=== PATIENT | male | born 1995 | race Caucasian/White ===

== ENCOUNTER 2018-09-09 20:03 | Emergency (ER) | payer BC ==
--- NOTE | 2018-09-09 21:21 | EDPHY ---
H & P Time Seen by Provider: 09/09/18 20:20 HPI/ROS: This patient describes onset of chest pain right lower chest while at the urgent care clinic being seen for a chronic cough he has had for 6-8 weeks. He explains that this was initially productive for the 1st few days associated with a sore throat in addition. The sore throat resolved and the cough has been dry with exception of mild clear to yellow sputum in the mornings in the past few weeks. He reports that he does not feel symptoms are improving and today he developed the additional symptom of the right-sided chest pain which she describes as a slight ache 4/10 intensity slightly worse with a deep breath. He had a chest x-ray performed at the urgent care reports was normal exception of airway disease. He was sent here out of concern of potential PE. His risk factors for PE include recent travel to [place]-returned 2 weeks ago, and hormone therapy for gender reassignment. He is also smoker. ROS: Constitutional: No fevers. No fatigue. HEENT: No current complaints pulmonary: Occasional wheeze and shortness of breath. He feels this improved with the albuterol neb he received at the urgent care shortly prior to arrival Cardiovascular: No heart palpitations lightheadedness. No leg swelling or calf pain. GI: No abdominal pain. Integumentary: No skin rash 10 point review of symptoms is performed and otherwise negative with exception of pertinent positives and negatives listed in HPI and ROS Past Medical/Surgical History: Gender reassignment receiving hormones as noted in medication list. Smoking Status: Current every day smoker Physical Exam: General Appearance: Alert, no distress. Eyes: Pupils equal and round no pallor or injection. ENT, Mouth: Mucous membranes moist. Respiratory: There are no retractions, lungs are clear to auscultation. Cardiovascular: Regular rate and rhythm. No murmur gallop rub Gastrointestinal: Abdomen is soft and nontender, no masses, bowel sounds normal. Neurological: GCS 15 Skin: Warm and dry, no rashes. Musculoskeletal: Neck is supple nontender. Extremities are symmetrical, full range of motion. Psychiatric: Mood and affect normal DIFFERENTIAL DIAGNOSIS: After history and physical exam differential diagnosis was considered for musculoskeletal pain, bronchitic pain, PE, pneumonia ruled out by chest x-ray earlier at the urgent care. Constitutional: Initial Vital Signs Temperature (C) 36.8 C 09/09/18 20:19 Heart Rate 93 10/18/18 20:19 Respiratory Rate 16 09/09/18 20:19 Blood Pressure 117/68 09/09/18 20:19 O2 Sat (%) 100 09/09/18 20:19 O2 Delivery Mode Room Air Allergies/Adverse Reactions: No Known Allergies Allergy (Unverified 09/09/18 20:18) Home Medications: Medication Instructions Recorded Albuterol Hfa Anes Only [Proair 2 puffs IH Q4 PRN #1 mdi 09/09/18 Hfa Icu (*)] Amphet Asp and D/Amphet [Adderall 09/09/18 10 MG (*)] Estradiol [Estradiol Transdermal 09/09/18 Patch] Finasteride [Proscar 5 MG (*)] 09/09/18 Fluticasone Hfa 220 Mcg [Flovent 2 puffs IH DAILY #1 mdi 09/09/18 220 MCG Hfa MDI (*)] Progesterone [Progesterone in Oil] 09/09/18 Tetracycline HCl 500 mg PO BID #20 capsule 09/09/18 MDM/Departure - MDM Medications Given: Discontinued Medications Ketorolac Tromethamine (Toradol) 15 mg IVP ONCE ONE Stop: 09/09/18 21:25 Last Admin: 09/09/18 21:39 Dose: Not Given ED Course/Re-evaluation: IV Toradol with relief of discomfort D-dimer is negative. Potassium slightly low consistent with albuterol neb prior to arrival. Discussion: Patient with chronic cough with chest pain that is likely musculoskeletal or pleuritic in etiology. With negative D-dimer coming in with low risk we have effectively ruled out pulmonary embolism is a consideration. He had chest x-ray with only airway disease at the urgent care shortly prior to arrival. Will treat with doxy antibiotic (had Zithromax earlier in the course of this illness without change in both knees, albuterol and Flovent. He will follow up with primary care physician for any ongoing symptoms understands need to return should he develop any significant worsening of symptoms despite treatment plan - Depart Disposition: Home, Routine, Self-Care Clinical Impression: Chronic cough Chest pain Qualifiers: Chest pain type: chest pain on breathing Qualified Code(s): R07.1 - Chest pain on breathing; R07.81 - Pleurodynia Condition: Good Instructions: Acute Bronchitis (ED), Chest Pain (ED) Additional Instructions: Diagnosis: 1. Chest pain 2. Chronic cough Plan: Humidifier Quit smoking. Albuterol inhaler Flovent steroid inhaler Doxycycline antibiotic Ibuprofen and/or Tylenol for discomfort as needed Follow up primary care physician for any ongoing symptoms Return for any significant worsening despite treatment plan Prescriptions: Albuterol Hfa Anes Only [Proair Hfa Icu (*)] 2 puffs IH Q4 PRN #1 mdi PRN Reason: Wheezing Fluticasone Hfa 220 Mcg [Flovent 220 MCG Hfa MDI (*)] 2 puffs IH DAILY #1 mdi Tetracycline HCl 500 mg PO BID #20 capsule Referrals: Radhika Coleman DO [Primary Care Provider] - As per Instructions
[2018-09-09] MEDS: KETOROLAC 15 MG/1 ML SDV IVP ONE ×2 (21:39→22:36)
[2018-09-09 22:53] VITALS: BP 123/60
== END 2018-09-09 22:53 | disposition home or self-care (01) ==
LOC: CED 20:03
DX: R05 Cough (principal); R07.1 Chest pain on breathing; F17.210 Nicotine dependence, cigarettes, uncomplicated; Z79.890 Hormone replacement therapy
CPT/HCPCS: 80048-PO; 96374; J1885